=== PATIENT | female | born 1960 | race Caucasian/White ===

== ENCOUNTER 2020-06-15 16:52 | Emergency (ER) | payer OTHER ==
[~2020-06-15 16:52] MED LIST: CETIRIZINE HCL10 MG PO; NORCO 5-325 TA1 EACH PO; SINGULAIR10 MG PO
[2020-06-15] MEDS ORDERED: DICLOFENAC SODI75 MG PO (18:42)
== END 2020-06-15 18:39 | disposition home or self-care (01) ==
LOC: FER 16:52
DX: S40.012A Contusion of left shoulder, initial encounter (principal); L50.9 Urticaria, unspecified; X50.9XXA Other and unspecified overexertion or strenuous movements or postures, initial encounter; Y92.89 Other specified places as the place of occurrence of the external cause; Y99.0 Civilian activity done for income or pay
CPT/HCPCS: 73030; J1040

== ENCOUNTER 2021-08-28 19:01 | Emergency (ER) | payer OTHER ==
[~2021-08-28 19:01] MED LIST changes: +DICLOFENAC SODI75 MG PO
[2021-08-28 19:54] LABS: BASOPHIL 0.3 % (0-2); EOSINOPHIL 0.4 % (0-5); HCT 45.5 % (37.0-47.0); HGB 14.7 g/dl (12.5-16.0); LYMPHOCYTE 4.6 % (15-48); MCH 26.6 pg (25.0-31.0); MCHC 32.3 g/dL (32.0-36.0); MCV 82.3 fL (78.0-100.0); MONOCYTE 4.4 % (0-12); MPV 9.3 fL (6.0-9.5); NEUTROPHIL 89.9 % (41-80); NRBC 0; PLT 354 K/uL (150-400); RBC 5.53 M/uL (4.20-5.40); RDW 12.7 % (11.5-14.0); WBC 11.2 K/uL (4.0-10.5)
[2021-08-28 20:11] LABS: ALBUMIN 3.5 g/dL (3.4-5.0); BILIRUBIN - TOTAL 0.6 mg/dL (0.2-1.0); BUN/CREAT RATIO (CALC) 15.9 RATIO; CREATININE 0.69 mg/dL (0.51-0.95); GLOBULIN (CALCULATION) 3.8 g/dL; POTASSIUM 4.2 mmol/L (3.5-5.1); TOTAL PROTEIN 7.3 g/dL (6.4-8.2)
[2021-08-28 20:28] LABS: BILIRUBIN NEGATIVE (NEGATIVE); BLOOD TRACE-INTACT Ery/uL (NEGATIVE); CLARITY CLEAR (CLEAR); COLOR YELLOW (YELLOW); GLUCOSE (U) NORMAL (NORMAL); LEUKOCYTES 1+ Leu/uL (NEGATIVE); NITRITE NEGATIVE (NEGATIVE); PROTEIN NEGATIVE (NEGATIVE); SPECIFIC GRAVITY >=1.030 (1.001-1.030); UROBILINOGEN 0.2 mg/dL (0.2-1.0)
[2021-08-28 20:35] LABS: AMORPHOUS URATES CRYSTALS MODERATE; BACTERIA 1+
[2021-08-28] MEDS ORDERED: METRONIDAZOLE500 MG PO (22:50)
[2021-08-28] MEDS ORDERED: PHENERGAN12.5 M1 PO (22:50)
[2021-08-28] MEDS ORDERED: CIPRO500 MG PO (22:50)
== END 2021-08-28 23:35 | disposition home or self-care (01) ==
LOC: FER 19:01
PROVIDERS: Physician Assistant
DX: K52.9 Noninfective gastroenteritis and colitis, unspecified (principal)
CPT/HCPCS: 36415; 80053; 81001; 83690; 85025; 87088; 96372; J0500; J2405; J7030; Q9967

== ENCOUNTER → 2021-11-14 | Day surgery (SDC) | payer OTHER ==
[~2021-11-14] VITALS: Ht 162.6 cm; Wt 76.7 kg
[~2021-11-14] MED LIST changes: +CIPRO500 MG PO; +METRONIDAZOLE500 MG PO; +PHENERGAN12.5 M1 PO
== END | disposition home or self-care (01) ==
LOC: FAS 09:57
DX: K52.9 Noninfective gastroenteritis and colitis, unspecified (principal); K57.30 Diverticulosis of large intestine without perforation or abscess without bleeding; Z80.0 Family history of malignant neoplasm of digestive organs
CPT/HCPCS: J2704; J7120

== ENCOUNTER 2021-12-31 19:27 | Emergency (ER) | payer OTHER ==
[2021-12-31] MEDS ORDERED: IBUPROFEN800 MG PO (21:32)
== END 2021-12-31 22:29 | disposition home or self-care (01) ==
LOC: FER 19:27
DX: M25.572 Pain in left ankle and joints of left foot (principal); Z28.310 Unvaccinated for COVID-19; W19.XXXA Unspecified fall, initial encounter
CPT/HCPCS: 73610